=== PATIENT | female | born 1945 | race Asian ===

== ENCOUNTER 2016-12-15 08:02 | Day surgery (SDC) | payer OTHER ==
[~2016-12-15] VITALS: Ht 149.9 cm; Wt 61.8 kg
[~2016-12-15 08:02] MED LIST: ACET-48 PO; ALLO100T PO; ASPI81TA2 PO; CALC1TAB90 PO; CYCL05OE OU; DORZ210OS OU; GABA-531 PO; GLIM1TAB2 PO; LISI40TA4 PO; METF500T4 PO; PRAV10TA2 PO; RINGERS SOLUTION,LACTATED 500 ML IV ONE; XALA2.5OS OU
[2016-12-15] MEDS ORDERED: RINGERS SOLUTION,LACTATED 500 ML IV ONE (08:11)
[2016-12-15] MEDS ORDERED: DICLOFENAC SODIUM 0.1% 2.5 ML OPHTHALMIC SOLUTION ONE (08:11)
[2016-12-15] MEDS ORDERED: TETRACAINE HCL/PF 0.5% 4 ML OPHTHALMIC SOLUTION ONE (08:11)
[2016-12-15] MEDS ORDERED: MOXIFLOXACIN HCL 0.5% 3 ML OPHTHALMIC SOLUTION ONE (08:11)
[2016-12-15] MEDS ORDERED: CYCLOPENTOLATE HCL 2% 2 ML OPHTHALMIC SOLUTION ONE (08:11)
[2016-12-15] MEDS ORDERED: PHENYLEPHRINE HCL 2.5% 2 ML OPHTHALMIC SOLUTION ONE (08:11)
[2016-12-15 08:57] LABS: GLUCOSE,POINT OF CARE 110 MG/DL (70-110)
[2016-12-15] MEDS: MOXIFLOXACIN HCL 0.5% 3 ML OPHTHALMIC SOLUTION OD SCH ×3 (08:57→09:18)
[2016-12-15] MEDS: CYCLOPENTOLATE HCL 2% 2 ML OPHTHALMIC SOLUTION OD SCH ×3 (08:57→09:08)
[2016-12-15] MEDS: PHENYLEPHRINE HCL 2.5% 2 ML OPHTHALMIC SOLUTION OD SCH ×3 (08:57→09:08)
[2016-12-15] MEDS: DICLOFENAC SODIUM 0.1% 2.5 ML OPHTHALMIC SOLUTION OD SCH ×3 (08:58→09:20)
[2016-12-15] MEDS ORDERED: TETRACAINE HCL/PF 0.5% 4 ML OPHTHALMIC SOLUTION OD ONE (09:15)
[2016-12-15] MEDS ORDERED: ACETAMINOPHEN/CODEINE 300-30 MG TABLET PO PRN (09:15)
[2016-12-15] MEDS ORDERED: AcetaZOLAMIDE 250 MG TABLET ONE (10:42)
[2016-12-15] MEDS ORDERED: AcetaZOLAMIDE 250 MG TABLET PO ONE (11:15)
[2016-12-15] MEDS ORDERED: FentaNYL CITRATE-PF 100 MCG/2 ML VIAL IVP ONE (12:00)
[2016-12-15] MEDS ORDERED: MIDAZOLAM HCL 2 MG/2 ML VIAL IVP ONE (12:00)
[2016-12-15] MEDS ORDERED: EPINEPHrine 1:1,000 [1 MG/ML] AMP IM ONE (17:33)
[2016-12-15] MEDS ORDERED: TETRACAINE HCL VISCOUS 0.5% 5 ML OPHTHALMIC SOLUTION OS ONE (17:33)
[2016-12-15] MEDS ORDERED: HYALURONATE SOD/CHONDROITIN SOD 0.5 ML VIAL IO ONE (17:33)
[2016-12-15] MEDS ORDERED: LIDOCAINE HCL/PF 1% 2 ML VIAL IM ONE (17:33)
[2016-12-15] MEDS ORDERED: BRIMONIDINE TARTRATE 0.15% 5 ML OPHTHALMIC SOLUTION OS ONE (17:33)
[2016-12-15] MEDS ORDERED: TETRACAINE HCL/PF 0.5% 4 ML OPHTHALMIC SOLUTION OS ONE (17:33)
[2016-12-15] MEDS ORDERED: POVIDONE-IODINE 10% 15 ML SOLUTION UD TP ONE (17:33)
[2016-12-15] MEDS ORDERED: HYALURONATE SODIUM 12 MG/ML 0.8 ML SYRINGE IO ONE (17:33)
[2016-12-15] MEDS ORDERED: BALANCED SALT 15 ML OPHTHALMIC IRRIG.SOLN OS ONE (17:33)
== END 2016-12-15 11:25 | disposition home or self-care (01) ==
LOC: SURGERY 08:02 → EDSEX 11:15 → SURGERY 11:25
PROVIDERS: ATTEND Ophthalmology
DX: E11.36 Type 2 diabetes mellitus with diabetic cataract (principal); H25.11 Age-related nuclear cataract, right eye; E11.39 Type 2 diabetes mellitus with other diabetic ophthalmic complication; H40.9 Unspecified glaucoma; I10 Essential (primary) hypertension; Z79.01 Long term (current) use of anticoagulants
CPT/HCPCS: 66984; C1780; 82962; 93005; J0171; J2250; J3010; J3490; J7120

== ENCOUNTER 2017-03-09 05:39 | Day surgery (SDC) | payer OTHER ==
[~2017-03-09] VITALS: Ht 149.9 cm; Wt 62.3 kg
[~2017-03-09 05:39] MED LIST changes: -ASPI81TA2 PO; +ASPI81TA39 PO; -RINGERS SOLUTION,LACTATED 500 ML IV ONE; +TETRACAINE HCL/PF 0.5% 4 ML OPHTHALMIC SOLUTION OS ONE
[2017-03-09] MEDS ORDERED: HYALURONATE SODIUM 12 MG/ML 0.8 ML SYRINGE IO ONE (05:40)
[2017-03-09] MEDS ORDERED: EPINEPHrine 1:1,000 [1 MG/ML] AMP SQ ONE (05:40)
[2017-03-09] MEDS ORDERED: MIDAZOLAM HCL 2 MG/2 ML VIAL IVP ONE (05:40)
[2017-03-09] MEDS ORDERED: RINGERS SOLUTION,LACTATED 500 ML IV ONE ×2 (05:40→06:00)
[2017-03-09] MEDS ORDERED: POVIDONE-IODINE 10% 15 ML SOLUTION UD TP ONE (05:40)
[2017-03-09] MEDS ORDERED: TETRACAINE HCL/PF 0.5% 4 ML OPHTHALMIC SOLUTION ONE (05:40)
[2017-03-09] MEDS ORDERED: TETRACAINE HCL VISCOUS 0.5% 5 ML OPHTHALMIC SOLUTION OS ONE (05:40)
[2017-03-09] MEDS ORDERED: DICLOFENAC SODIUM 0.1% 2.5 ML OPHTHALMIC SOLUTION ONE (05:40)
[2017-03-09] MEDS ORDERED: CYCLOPENTOLATE HCL 2% 2 ML OPHTHALMIC SOLUTION ONE (05:40)
[2017-03-09] MEDS ORDERED: MOXIFLOXACIN HCL 0.5% 3 ML OPHTHALMIC SOLUTION ONE (05:40)
[2017-03-09] MEDS ORDERED: HYALURONATE SOD/CHONDROITIN SOD 0.5 ML VIAL IO ONE (05:40)
[2017-03-09] MEDS ORDERED: LIDOCAINE HCL/PF 1% 2 ML VIAL IM ONE (05:40)
[2017-03-09] MEDS ORDERED: PHENYLEPHRINE HCL 2.5% 2 ML OPHTHALMIC SOLUTION ONE (05:40)
[2017-03-09] MEDS ORDERED: BRIMONIDINE TARTRATE 0.15% 5 ML OPHTHALMIC SOLUTION OS ONE (05:40)
[2017-03-09] MEDS: CYCLOPENTOLATE HCL 2% 2 ML OPHTHALMIC SOLUTION OS SCH ×3 (06:28→06:38)
[2017-03-09] MEDS: DICLOFENAC SODIUM 0.1% 2.5 ML OPHTHALMIC SOLUTION OS SCH ×3 (06:28→06:48)
[2017-03-09] MEDS: PHENYLEPHRINE HCL 2.5% 2 ML OPHTHALMIC SOLUTION OS SCH ×3 (06:28→06:38)
[2017-03-09] MEDS: MOXIFLOXACIN HCL 0.5% 3 ML OPHTHALMIC SOLUTION OS SCH ×3 (06:28→06:48)
[2017-03-09 06:33] LABS: GLUCOSE,POINT OF CARE 105 MG/DL (70-110)
[2017-03-09] MEDS ORDERED: AcetaZOLAMIDE 250 MG TABLET PO ONE (07:30)
[2017-03-09] MEDS ORDERED: ACETAMINOPHEN/CODEINE 300-30 MG TABLET PO PRN (07:30)
[2017-03-09] MEDS ORDERED: AcetaZOLAMIDE 250 MG TABLET ONE (08:18)
== END 2017-03-09 08:55 | disposition home or self-care (01) ==
LOC: SURGERY 05:39
PROVIDERS: ATTEND Ophthalmology
DX: E11.36 Type 2 diabetes mellitus with diabetic cataract (principal); H25.12 Age-related nuclear cataract, left eye; E11.39 Type 2 diabetes mellitus with other diabetic ophthalmic complication; H40.9 Unspecified glaucoma; I10 Essential (primary) hypertension; E66.01 Morbid (severe) obesity due to excess calories
CPT/HCPCS: 66984; 82962; C1780; J0171; J2250; J3490 ×2; J7120